=== PATIENT | male | born 1975 | race Caucasian/White ===

== ENCOUNTER 2018-09-08 15:43 | Emergency (ER) | payer OTHER, BC ==
[~2018-09-08] VITALS: Ht 172.7 cm; Wt 106.6 kg
[~2018-09-08 15:43] MED LIST: CEPH500 PO; HYDACE5 PO; OXYACE5T PO; RXNEOPOLHC AS; RXOXYACE PO
== END 2018-09-08 18:20 | disposition short-term general hospital (02) ==
LOC: ER 15:43
DX: S82.142A Displaced bicondylar fracture of left tibia, initial encounter for closed fracture (principal); X58.XXXA Exposure to other specified factors, initial encounter
CPT/HCPCS: 29505; 36415; 73590; 73700; 96374-59; 96375-59; 99285-25; J1170; J2405; J2704; J7030